=== PATIENT | male | born 2000 | race Caucasian/White ===

== ENCOUNTER 2021-03-03 14:13 | Emergency (ER) | payer MEDICAID ==
[~2021-03-03] VITALS: Ht 185.4 cm; Wt 79.4 kg
[2021-03-03 14:22] VITALS: BP 107/64
== END 2021-03-03 15:51 | disposition home or self-care (01) ==
LOC: EDUNIT# 14:13 → EDBD 14:13 → ER 14:13
DX: S00.83XA Contusion of other part of head, initial encounter (principal); F17.210 Nicotine dependence, cigarettes, uncomplicated; Y00.XXXA Assault by blunt object, initial encounter; Y93.89 Activity, other specified; Y92.89 Other specified places as the place of occurrence of the external cause; Y99.8 Other external cause status
CPT/HCPCS: 70450